=== PATIENT | male | born 1960 | race Caucasian/White ===

== ENCOUNTER 2020-03-05 12:58 | Emergency (ER) | payer OTHER, SELFPAY ==
[2020-03-05 13:07] VITALS: BP 167/90; PULSE 74; RESP 19; TEMP 36.6; O2SAT 97; BMI 27.8
--- NOTE | 2020-03-05 13:22 | HMH.EDUTC ---
[facility] – [place] Dis[place] Clinical Impression: Laceration Disposition: Home, Self-Care Condition on Discharge: Good Instructions: DI for Laceration Repair Steri-Strips Additional Instructions: Watch wound area for infection which includes but not limited to redness, drainage, swelling, warmth if seen follow up with Family doctor immediately *Leave wound open to air when you are at home and keep wound area clean and dry *Do not pick steri strips off, allow them to wear off this allows the wound time to heal from inside out Follow up with family doctor if no improvement or any worsening of symptoms *Follow up immediately if any fever chills or any signs of infection Return if needed Do not apply bandaids to the wound as this can make the wound sweat and increase your risk of infection Straight to ER if any life threatening symptoms Prescriptions: cephALEXin [Keflex 500mg Cap] 500 mg PO Q6H 7 Days #28 cap Transmission Status: Received by [facility] [employer] #[id number] Referrals: Provider,Referral, [Primary Care Provider] - As needed Time of Disposition: 13:42 Medical Decision Making - Jone Inquiry Pt receiving controlled substance: No Jone was queried for this patient: No Vital Signs: 03/05/20 13:07 03/05/20 14:02 Temperature 97.8 F 97.8 F Temperature Source Oral Oral Pulse Rate 74 Pulse Rate [Radial] 74 Respiratory Rate 19 19 Blood Pressure 167/90 H Blood Pressure [Right Arm] 167/90 H Blood Pressure Mean [Right Arm] 115 Blood Pressure Source Automatic Cuff Blood Pressure Source [Right Arm] Automatic Cuff Blood Pressure Position Sitting Blood Pressure Position [Right Arm] Sitting 02 Sat by Pulse Oximetry 97 Oxygen Delivery Method Room Air Room Air Orders (Tests/Meds): ED MEDICATIONS Discontinued Medications Generic Name Dose Route Start Last Admin Trade Name Freq PRN Reason Stop Dose Admin Tetanus/Diphtheria Toxoids 0.5 ml 03/05/20 13:24 03/05/20 13:31 Tenivac 0.5ml Syringe IM 03/05/20 13:25 0.5 ml .ONCE ONE Administration Medical Decision Narrative: wound laceration on top of hand/wrist area cleaned well and patient educated that when he has a wound this extensive needs to come in immediately for closure not just for cosmetic reasons but helps to lower risk of infection Patient verbalized understanding. Wound area cleaned well and steri strips placed to help with wound healing due to laceration and risk of infection, wound edges approximated well [facility] [place] HPI - General Stated complaint: AO 03/04/20 12:00 left hand injury Time Seen by Provider: 03/05/20 13:23 Mode of Arrival: Ambulatory Source of Information: Patient Limitations: No Limitations Description of Symptoms (Recalled from Triage Doc. by RN): cut left hand with utility knife yesterday HEENT Symptoms (Recalled from RN notes): No Resp Symptoms (Recalled from RN notes): No Skin Symptoms (Recalled from RN notes): Yes MS Symptoms (Recalled from RN notes): No Functional Status (Recalled from RN notes): wnl - History of Present Illness Provider Complaint: Patient state that he was using a utility knife yesterday when it slipped and cut his hand/wrist area on top of his hand State that he immediately cleaned it with alcohol and put some neosporin on it with a bandage to stop the bleeding States that his aggrivated him last night over a tetanus shot and this morning she was still telling him he needed to come so he came in States that EMT looked at it last night and told him he needed to come in but he wouldnt - Related Data Previous Rx's Medication Instructions Recorded cephALEXin [Keflex 500mg Cap] 500 mg PO Q6H 7 Days #28 cap 03/05/20 Allergies Allergy/AdvReac Type Severity Reaction Status Date / Time No Known Allergies Allergy Verified 03/05/20 13:10 - Worker's Comp Is this a Worker's Comp case?: No [facility] History - Hepatitis A Screen Drug use history?: No High risk sexual behaviors?: No H
[2020-03-05 14:02] VITALS: BP 167/90; PULSE 74; RESP 19; TEMP 36.6; O2SAT 97
== END 2020-03-05 14:03 | disposition home or self-care (01) ==
PROVIDERS: Emergency Provider Nurse Practitioner
DX: S61.412A Laceration without foreign body of left hand, initial encounter (principal); W26.0XXA Contact with knife, initial encounter; Y92.019 Unspecified place in single-family (private) house as the place of occurrence of the external cause; Z23 Encounter for immunization; F17.210 Nicotine dependence, cigarettes, uncomplicated
CPT/HCPCS: 90471; 90714; 99201

== ENCOUNTER → 2022-05-18 08:21 | Outpatient (CLI) | payer OTHER, SELFPAY ==
[2022-05-18 08:36] LABS: Microscopic, Urine URINE MICROSCOPIC (MICROSCOPIC)
--- NOTE | 2022-05-18 08:52 | XR_ITS ---
PROCEDURE INFORMATION: Exam: XR Chest Exam date and time: 05/18/2022 8:53 AM Age: 62 years old Clinical indication: Smoker's cough; Additional info: Cough, smoker TECHNIQUE: Imaging protocol: Radiologic exam of the chest. Views: 2 views. COMPARISON: No relevant prior studies available. FINDINGS: Lungs: No focal airspace disease. Pleural spaces: Unremarkable. No pleural effusion. No pneumothorax. Heart/Mediastinum: Cardiomediastinal silhouette is within normal limits. Bones/joints: Unremarkable. IMPRESSION: No acute cardiopulmonary abnormality.
[2022-05-18 09:14] LABS: Basophils # 0.1 K/mm3 (0-0.2); Basophils % 1.2 % (0.1-2.0); Eosinophils # 0.1 K/mm3 (0.0-0.4); Eosinophils % 2.2 % (0.1-12.0); Hematocrit 49.7 % (42.0-52.0); Hemoglobin 15.5 g/dL (14.1-18.0); Lymphocytes # 1.8 K/mm3 (0.7-4.5); Lymphocytes % 27.9 % (10-50); Mean Corpuscular HGB Conc 31.1 g/dL (31.8-35.4); Mean Corpuscular Volume 99.6 fl (80-94); Mean Platelet Volume 7.8 fl (7.4-10.4); Monocytes # 0.4 K/mm3 (0.1-1.0); Monocytes % 6.3 % (1.7-9.3); Neutrophils # 3.9 K/mm3 (1.8-7.8); Neutrophils % 62.4 % (37.0-80.0); Platelet Count 328 K/mm3 (142-424); Red Blood Count 4.99 M/mm3 (4.60-6.20); Red Cell Distribution Width 12.7 % (11.5-17.5); White Blood Count 6.3 K/mm3 (4.8-10.8)
[2022-05-18 09:41] LABS: Alanine Aminotransferase 24 U/L (12-78); Albumin Level 4.3 g/dl (3.5-5.0); Albumin/Globulin Ratio 1.7 (1.1-1.8); Alkaline Phosphatase 85 U/L (38-126); Anion Gap 11.3 mEq/L (5-15); Aspartate Amino Transferase 27 U/L (17-59); Bilirubin,Total 0.4 mg/dl (0.2-1.3); Blood Urea Nitrogen 11 mg/dl (9-20); Carbon Dioxide 23 mmol/L (22.0-30.0); Chloride 108 mmol/L (98-107); Chol/HDL Ratio 3.1 (1-3.5); Cholesterol 177 mg/dl (140-200); Estimated Glomerular Filt Rate 115 ml/min (>60); GFR (African American) 139 ML/MIN (>60); Globulin 2.6 g/dL (1.3-3.2); Glucose 119 mg/dl (74-100); HDL Cholesterol 58 mg/dl (40-60); Potassium 4.3 mmoL/L (3.5-5.1); Sodium 138 mmol/L (136-145); Total Protein,Serum 6.9 g/dl (6.3-8.2); Triglycerides 107 mg/dl (30-150); VLDL Cholesterol 21 mg/dL (0-40)
[2022-05-18 10:15] LABS: Appearance,Urine CLEAR (Clear); Bilirubin,Urine Negative (Negative); Blood, Urine Negative (Negative); Color,Urine YELLOW (Yellow); Glucose,Urine (UA) Negative (Negative); Ketones,Urine Negative (Negative); Leukocyte Esterase,Urine Negative (Negative); Nitrate,Urine Negative (Negative); PH,Urine 5.5 (5.0-8.5); Protein,Urine Negative (Negative); Specific Gravity, Urine >= 1.030 (1.005-1.030); Urobilinogen,Urine 0.2 EU/dl (0.2)
[2022-05-18 10:34] LABS: Squamous Epithelial Cell,Urine Occasional #/hpf (0-5)
[2022-05-18 11:03] LABS: Vitamin B12 455 pg/mL (239-931)
[2022-05-18 12:14] LABS: Thyroid Stimulating Hormone 2.47 uIU/mL (0.465-4.68)
[2022-05-18 16:46] LABS: Prostate Specific Ag Screen 0.3 ng/ml (0.0-4.0)
[2022-05-22 01:55] LABS: Direct LDL Cholesterol 96 mg/dL (100-129)
== END ==
PROVIDERS: Visit Provider Emergency Medicine
DX: R05.8 Other specified cough (principal); I10 Essential (primary) hypertension; M81.0 Age-related osteoporosis without current pathological fracture; Z72.0 Tobacco use; Z12.5 Encounter for screening for malignant neoplasm of prostate
CPT/HCPCS: 36415; 71046; 80053; 80061; 81001; 82607; 82746; 84443; 85025; G0103

== ENCOUNTER → 2022-10-07 10:48 | Outpatient (CLI) | payer OTHER, SELFPAY ==
[2022-10-07 16:20] LABS: Basophils # 0.1 K/mm3 (0-0.2); Eosinophils # 0.2 K/mm3 (0.0-0.4); Eosinophils % 2.1 % (0.1-12.0); Hematocrit 45.2 % (42.0-52.0); Hemoglobin 15.1 g/dL (14.1-18.0); Lymphocytes # 2.1 K/mm3 (0.7-4.5); Lymphocytes % 28.7 % (10-50); Mean Corpuscular HGB Conc 33.5 g/dL (31.8-35.4); Mean Corpuscular Hemoglobin 31.6 pg (27.0-31.2); Mean Corpuscular Volume 94.4 fl (80-94); Mean Platelet Volume 8.6 fl (7.4-10.4); Monocytes # 0.4 K/mm3 (0.1-1.0); Monocytes % 6.1 % (1.7-9.3); Neutrophils # 4.5 K/mm3 (1.8-7.8); Neutrophils % 62.1 % (37.0-80.0); Platelet Count 373 K/mm3 (142-424); Red Blood Count 4.78 M/mm3 (4.60-6.20); Red Cell Distribution Width 12.8 % (11.5-17.5); White Blood Count 7.2 K/mm3 (4.8-10.8)
[2022-10-07 16:21] LABS: Alanine Aminotransferase 27 U/L (12-78); Albumin Level 4.8 g/dl (3.5-5.0); Albumin/Globulin Ratio 1.8 (1.1-1.8); Alkaline Phosphatase 82 U/L (38-126); Anion Gap 13.4 mEq/L (5-15); Aspartate Amino Transferase 30 U/L (17-59); Bilirubin,Total 0.5 mg/dl (0.2-1.3); Blood Urea Nitrogen 14 mg/dl (9-20); Carbon Dioxide 26 mmol/L (22.0-30.0); Chloride 105 mmol/L (98-107); Chol/HDL Ratio 3.9 (1-3.5); Cholesterol 194 mg/dl (140-200); Estimated Glomerular Filt Rate 99 ml/min (>60); GFR (African American) 119 ML/MIN (>60); Globulin 2.6 g/dL (1.3-3.2); Glucose 107 mg/dl (74-100); HDL Cholesterol 50 mg/dl (40-60); Potassium 4.4 mmoL/L (3.5-5.1); Sodium 140 mmol/L (136-145); Total Protein,Serum 7.4 g/dl (6.3-8.2); Triglycerides 152 mg/dl (30-150); VLDL Cholesterol 30 mg/dL (0-40)
[2022-10-07 16:40] LABS: 25-OH Vitamin D, Total < 12.8 ng/mL (30-100)
[2022-10-07 16:52] LABS: Thyroid Stimulating Hormone 2.33 uIU/mL (0.465-4.68)
== END ==
PROVIDERS: PCP Physician Assistant; Visit Provider Physician Assistant
DX: Z00.00 Encounter for general adult medical examination without abnormal findings (principal); E55.9 Vitamin D deficiency, unspecified; Z79.899 Other long term (current) drug therapy
CPT/HCPCS: 80053; 80061; 82306; 84443; 85025

== ENCOUNTER → 2022-10-16 14:38 | Outpatient (CLI) | payer OTHER, SELFPAY ==
--- NOTE | 2022-10-16 14:38 | CT_ITS ---
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 Low-dose protocol was utilized. CTDI vol (mGy): 2.90 DLP (mGy-cm): 96.38 There is no axillary adenopathy. There is no hilar or mediastinal adenopathy. The heart is proper size. There is no pericardial or pleural effusion. Lung window images demonstrate small nodules in the periphery of the right lower lobe measuring 5 mm or less, favor granulomas given evidence of old granulomas disease. Limited images of the upper abdomen are unremarkable. IMPRESSION: Benign-appearing right lower lobe nodules. Lung RADS category 2. Recommend 12 month follow-up low-dose chest CT. Reviewed, Interpreted and Dictated by Dot Duarte MD Transcribed by Ifrah Bauer Authenticated and [facility]
== END ==
PROVIDERS: PCP Physician Assistant; Visit Provider Physician Assistant
DX: Z87.891 Personal history of nicotine dependence (principal); Z12.2 Encounter for screening for malignant neoplasm of respiratory organs
CPT/HCPCS: 71271

== ENCOUNTER → 2022-11-14 11:28 | Outpatient (CLI) | payer OTHER, SELFPAY ==
--- NOTE | 2022-11-14 | CA_ITS ---
APPROVED REPORT Exam: Pharmacologic Technologist: Yamileth Lopez, Ht: 6 ft 0 in Wt: 234 lbs BSA: 2.28 m2 HR: 57 bpm BP: 181/93 mmHg Rhythm: nsr,bradycardia,inferior st t abnormalities Medical History Medications: Lisinopril,,,,, Prilosec,,,,, D3,,,,, D2,,,,, Terbinafine,,,,, Stress Test Details Test: LEXISCAN HR Resting HR: 61 bpm Max Heart Rate (APMHR): 160.469207 bpm Max HR Achieved: 91 bpm Target HR (85% APMHR): 136.059589 bpm % of APMHR: 56.88 Recovery HR: 71 bpm BP Resting BP: 181.0/93.0 mmHg Max BP: 181.0/93.0 mmHg Recovery BP: 161.0/93.0 mmHg ECG Clinical Reason for Termination: Completed Protocol Exercise duration: 04:01 min Highest Stage Achieved: Exercise capacity: 1.0 METs Stress ECG Conclusion DURING INFUSION PATIENT HAD NO SYMPTOMS OR ARRHYTHMIAS/ECTOPY. <1.[address] SEGMENT CHANGES. NON-DIAGNOSTIC TEST Test Summary REST . . . . . . . Sitting REST 04:59 . . 61 . 181/ 93 . . Stage 1 . . . . . . . Myoview Injected Stage 1 01:00 . . 88 . . . . Stage 2 01:00 . . 83 . 162/ 88 . . Stage 3 01:00 . . 79 . 164/ 92 . . Stage 4 01:00 . . 77 . 171/ 97 . . Stage 4 01:01 . . 77 . 171/ 97 . Stop exercise at 04:01 RECOVERY 01:00 . . 74 . . . . RECOVERY 02:00 . . 71 . 161/ 93 . . RECOVERY 03:00 . . 69 . 161/ 93 . . RECOVERY 03:31 . . 69 . 160/ 95 . . Electronically signed by : Jeovanny Johnson MD 11/15/2022 13:05:58
--- NOTE | 2022-11-14 11:28 | NM_ITS ---
APPROVED REPORT Exam: Nuclear Stress Test Indication: Chest pain, SOB, HTN, Tobacco use, Family history Patient Location: Outpatient Stress Tech: Caroline Jessica [place] Tech:YOAV Alston RT(R)(N) Ht: 6 ft 0 in Wt: 230 lbs HR: 61 bpm BP: 181/93 mmHg BSA: 2.26 m2 TID: 1.04 History: Chest pain, SOB, HTN, Tobacco use, Family history Procedure: Patient received 0.4 mg of intravenous Lexiscan, resting heart rate 61 bpm, resting blood pressure 181/93 mmHg, with Lexiscan maximum heart rate achieved was 91 bpm which is Less than 85 % of the maximum predicted heart rate and blood pressure was 181/93 mmHg. With Lexiscan, patient denied any complaint of chest pain. Electrocardiogram Resting electrocardiogram shows sinus rhythm, with Lexiscan there is less than 1.[address] segment depression noted from the baseline EKG. The EKG portion of the Lexiscan is nondiagnostic. Cardiac Stress and Resting SPECT Images: Cardiac Stress and Resting SPECT images were obtained using technetium 99m Myoview 32.5 mCi stress and 10.29 mCi at rest. Gated SPECT analysis of segmental wall motion and calculation of the ejection fraction also done. Prone images were also obtained. Cardiac stress and rest SPECT images show uniform myocardial activity without segmental perfusion abnormality, computer derived ejection fraction is 47% with no regional wall motion abnormality, right ventricle is normal size and contractility. Conclusion: 1. The EKG portion of the Lexiscan is nondiagnostic. 2. No scintigraphic evidence of reversible ischemia seen, computer derived ejection fraction 47% with no regional wall motion abnormality, right ventricle is normal size and contractility. 3. Normal Lexiscan Myoview study. Electronically signed by : Jeovanny Johnson MD 11/15/2022 13:08:31
== END ==
LOC: RAD 11:28
PROVIDERS: PCP Physician Assistant; Visit Provider Nurse Practitioner Family
DX: R06.02 Shortness of breath (principal)
CPT/HCPCS: 78452; 93017; A9502; J2785

== ENCOUNTER → 2022-12-02 07:23 | Outpatient (CLI) | payer OTHER, SELFPAY ==
--- NOTE | 2022-12-02 07:24 | CA_ITS ---
FINAL REPORT TECHNIQUE: Grayscale, color Doppler and duplex Doppler ultrasound of the kidneys, aorta and renal arteries was performed. Multiple velocities were measured. CLINICAL HISTORY: HTN,SMOKER FINDINGS: Aorta velocity: 85 cm/sec Right kidney: 11.8 cm. No evidence of hydronephrosis or mass. Right intrarenal RI: 0.71 Right renal artery velocity: 184 cm/sec. Right RAR (Renal artery-Aortic Ratio): 2.15 Left Kidney: 11.5 cm. No evidence of hydronephrosis or mass. Left intrarenal RI: 0.68 Left renal artery velocity: 186 cm/sec. Left RAR (Renal Artery-Aortic Ratio): 2.19 IMPRESSION: Less than 60% renal artery stenosis. Recommend CTA or catheter angiogram for further evaluation. Reviewed, Interpreted and Dictated by Janak Kaur III, MD Transcribed by Ifrah Bauer Authenticated and [facility]
--- NOTE | 2022-12-02 07:59 | US_ITS ---
FINAL REPORT TECHNIQUE: Ultrasound images of the kidneys and bladder were obtained. CLINICAL HISTORY: I10 - Essential (primary) hypertension FINDINGS: The right kidney measures 13 cm in length. It is normal in echogenicity. There is no hydronephrosis. The left kidney measures 11.3 cm in length. It is normal in echogenicity. There is no hydronephrosis. IMPRESSION: No hydronephrosis. Reviewed, Interpreted and Dictated by Janak Kaur III, MD Transcribed by Jane Wilburn Authenticated and [facility]
== END ==
LOC: RT 07:24
PROVIDERS: PCP Physician Assistant; Visit Provider Nurse Practitioner
DX: R06.02 Shortness of breath (principal); R07.9 Chest pain, unspecified; I10 Essential (primary) hypertension; F17.200 Nicotine dependence, unspecified, uncomplicated; Z78.9 Other specified health status; Z82.49 Family history of ischemic heart disease and other diseases of the circulatory system
CPT/HCPCS: 76770; 93976

== ENCOUNTER 2023-03-13 07:34 | Emergency (ER) | payer OTHER, SELFPAY ==
[2023-03-13 07:34] VITALS: BP 148/86; PULSE 84; RESP 18; TEMP 36.4; O2SAT 98; BMI 30.2
--- NOTE | 2023-03-13 07:53 | PC.NURSE ---
MATTHEW CUEVAS at
--- NOTE | 2023-03-13 08:00 | XR_ITS ---
FINAL REPORT TECHNIQUE: Chest PA & Lateral CLINICAL HISTORY: Pleuritic chest pain COMPARISON: 04/28/2022 FINDINGS: 2 views of the chest were performed. The heart size is normal. The mediastinum is within normal limits. There is no acute cardiopulmonary process. There are no pleural effusions. There is no pneumothorax. The bony thorax appears intact. IMPRESSION: No acute cardiopulmonary process. Reviewed, Interpreted and Dictated by Mahesh Malloy MD Transcribed by Breonna Guzman Authenticated and . [facility]
--- NOTE | 2023-03-13 08:01 | HMH.EDGENADL ---
Discharge Plan Disposition Patient Disposition: Home, Self-Care Prescriptions Prescriptions: New naproxen 375 mg tablet 375 mg PO BID Qty: 30 0RF No Action aspirin [Adult Low Dose Aspirin] 81 mg tablet,delayed release (DR/EC) 81 mg PO DAILY Qty: 90 1RF carvedilol [Coreg] 6.25 mg tablet 6.25 mg PO BID Qty: 180 1RF Rx Instructions: must administer with a meal/food omeprazole magnesium [Prilosec OTC] 20 mg tablet,delayed release (DR/EC) 20 mg PO DAILY psyllium husk [Fiber (psyllium husk)] 0.4 gram capsule 0.8 g PO DAILY cholecalciferol (vitamin D3) 50 mcg (2,000 unit) capsule 50 mcg PO DAILY Qty: 90 3RF ergocalciferol (vitamin D2) 1,250 mcg (50,000 unit) capsule See Rx Instructions .ROUTE .COMPLEX Qty: 14 0RF Dose Instruction: TAKE 1 CAPSULE BY MOUTH ONCE WEEKLY ON SAME DAY EACH WEEK Rx Instructions: TAKE 1 CAPSULE BY MOUTH ONCE WEEKLY ON SAME DAY EACH WEEK terbinafine HCl 250 mg tablet See Rx Instructions .ROUTE .COMPLEX Qty: 30 0RF Dose Instruction: TAKE 1 TABLET BY MOUTH DAILY Rx Instructions: TAKE 1 TABLET BY MOUTH DAILY lisinopril 40 mg tablet 40 mg PO DAILY Qty: 90 1RF Referrals Follow up/Referrals: Rebekah Rendon PA [Primary Care Provider] - See instructions Clinical Impressions Clinical Impression: Acute chest wall pain Stand Alone Forms Stand Alone Forms: Work/School Release Discharge ED Provider: Brien Jimenes General Adult HPI General Chief complaint: PAIN Stated complaint: RT rib pain Time Seen by Provider: 03/13/23 07:57 Mode of Arrival: Ambulatory Source of Information: Patient Limitations: No Limitations Description of Symptoms (Recalled from ER Triage Doc. by RN): Presents to ED with complaints of right sided rib pain that started the night before last, however progressed while working yesterday. Reports pain upon inspiration. History of Present Illness HPI narrative: 62-year-old white male presents with right anterior lower chest wall pain with deep inspirations. The patient has had no known trauma has had no fever chills or cough out of the ordinary. He is a smoker so he has a baseline cough. 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 Patient reports that he went to work yesterday but the pain increased as the day progressed. He has not sought medical attention prior to this visit. Related Data Home Medications Medication Instructions Recorded Confirmed omeprazole magnesium 20 mg 20 mg PO DAILY 10/07/22 03/05/23 tablet,delayed release (Prilosec OTC) psyllium husk 0.4 gram capsule 0.8 g PO DAILY 10/07/22 03/05/23 (Fiber (psyllium husk)) Previous Rx's Medication Instructions Recorded cholecalciferol (vitamin D3) 50 50 mcg PO DAILY #90 caps 10/09/22 mcg (2,000 unit) capsule aspirin 81 mg tablet,delayed 81 mg PO DAILY #90 tabs 10/23/22 release (Adult Low Dose Aspirin) carvedilol 6.25 mg tablet (Coreg) 6.25 mg PO BID #180 tabs 10/23/22 ergocalciferol (vitamin D2) 1,250 See Rx Instructions .Route 12/05/22 mcg (50,000 unit) capsule .COMPLEX #14 caps terbinafine HCl 250 mg tablet See Rx Instructions .Route 02/14/23 .COMPLEX #30 tabs lisinopril 40 mg tablet 40 mg PO DAILY #90 tabs 02/18/23 naproxen 375 mg tablet 375 mg PO BID #30 tabs 03/13/23 Allergies Allergy/AdvReac Type Severity Reaction Status Date / Time No Known Allergies Allergy Verified 03/05/23 08:32 [facility] Disclaimer: The information contained in this section may have been updated after the patient was seen, as this information can be updated by other users. Medical History Alcohol use Chest pain Family history of coronary artery disease Hypertension SOB (shortness of breath) on exertion Tobacco dependence syndrome Family History (Reviewed 0
--- NOTE | 2023-03-13 08:31 | ECG_ITS ---
APPROVED REPORT Exam: Resting ECG HR:67 bpm ECG Measurements Heart Rate 67 AXES KS 159 P 44 QRSd 110 QRS -14 QT 362 T 6 QTc 377 Conclusion SINUS RHYTHM NORMAL ECG UNCONFIRMED REPORT Electronically signed by : Terrence Walker MD 03/13/2023 20:07:41
--- NOTE | 2023-03-13 08:33 | PC.NURSE ---
Pt to XR
--- NOTE | 2023-03-13 08:40 | PC.NURSE ---
Pt back from XR
[2023-03-13 08:42] LABS: Basophils % 0.4 % (0.1-2.0); Eosinophils # 0.2 K/mm3 (0.0-0.4); Eosinophils % 2.8 % (0.1-12.0); Hematocrit 43.9 % (42.0-52.0); Hemoglobin 14.7 g/dL (14.1-18.0); Lymphocytes % 11.8 % (10-50); Mean Corpuscular HGB Conc 33.6 g/dL (31.8-35.4); Mean Corpuscular Hemoglobin 31.5 pg (27.0-31.2); Mean Corpuscular Volume 93.8 fl (80-94); Mean Platelet Volume 8.1 fl (7.4-10.4); Monocytes # 0.7 K/mm3 (0.1-1.0); Monocytes % 7.9 % (1.7-9.3); Neutrophils # 6.6 K/mm3 (1.8-7.8); Neutrophils % 77.2 % (37.0-80.0); Platelet Count 285 K/mm3 (142-424); Red Blood Count 4.68 M/mm3 (4.60-6.20); Red Cell Distribution Width 12.8 % (11.5-17.5); White Blood Count 8.6 K/mm3 (4.8-10.8)
[2023-03-13 08:43] LABS: Chloride 101 mmol/L (98-107); Sodium 136 mmol/L (136-145)
[2023-03-13 08:46] LABS: Alanine Aminotransferase 22 U/L (12-78); Albumin Level 4.4 g/dl (3.5-5.0); Albumin/Globulin Ratio 1.5 (1.1-1.8); Alkaline Phosphatase 76 U/L (38-126); Aspartate Amino Transferase 29 U/L (17-59); Bilirubin,Total 0.6 mg/dl (0.2-1.3); Blood Urea Nitrogen 12 mg/dl (9-20); Carbon Dioxide 25 mmol/L (22.0-30.0); Creatinine Clearance Estimated 140 mL/min (50-200); Estimated Glomerular Filt Rate 99 ml/min (>60); GFR (African American) 119 ML/MIN (>60); Total Protein,Serum 7.4 g/dl (6.3-8.2)
[2023-03-13 08:47] LABS: Calcium 8.9 mg/dl (8.4-10.2); Glucose 127 mg/dl (74-100)
[2023-03-13 09:03] LABS: Troponin I < 0.01 ng/ml (0.00-0.034)
[2023-03-13 09:09] LABS: D-Dimer 0.94 ug/mL (0.0-0.5)
--- NOTE | 2023-03-13 09:27 | CT_ITS ---
FINAL REPORT TECHNIQUE: The patient was injected with IV contrast. Axial images were obtained through the chest in a PE protocol. 3-D reconstruction images were also performed. Individualized dose reduction techniques using automated exposure control or adjustment of the MA and/or KV according to patient's size were employed. CLINICAL HISTORY: Pleuritic chest pain positive D-dimer FINDINGS: Mediastinal vasculature is adequately opacified. No pulmonary artery filling defects are identified to suggest PE. There is no aortic dissection. There is no axillary adenopathy. There is no hilar or mediastinal adenopathy. The heart size is normal. There is no pericardial or pleural effusion. Limited images of the upper abdomen are unremarkable. No suspicious infiltrate or nodule is identified, specifically the small nodules seen on the screening low-dose chest CT of October 16 are not visualized on today's exam. There is a calcified granuloma present in the posterior left upper lobe. Incidental note is made of small right collecting system nonobstructing 4 mm kidney stones. IMPRESSION: No pulmonary embolus or dissection. Tiny nodules seen on a screening chest CT of October 16 are not seen on today's exam. A few tiny small right renal collecting system nonobstructing stones are present. Reviewed, Interpreted and Dictated by Mahesh Malloy MD Transcribed by Breonna Guzman Authenticated and [facility]
--- NOTE | 2023-03-13 09:29 | PC.NURSE ---
Rounded on patient; call gallagher within reach of patient
[2023-03-13 09:43] VITALS: BP 140/76; PULSE 56; RESP 16; O2SAT 97
--- NOTE | 2023-03-13 09:44 | PC.NURSE ---
pt to CT
[2023-03-13 10:00] VITALS: BP 146/68; PULSE 55; RESP 18; O2SAT 96
[2023-03-13 10:30] VITALS: BP 127/72; PULSE 53; RESP 18; O2SAT 95
--- NOTE | 2023-03-13 10:44 | PC.NURSE ---
contacted rad to check on status of CT chest result- states will send down preliminary result.
--- NOTE | 2023-03-13 10:46 | PC.NURSE ---
rounded on pt, pt resting in bed, updated pt that CT results are being send down from radiology. Pt states no needs at this time.
[2023-03-13 11:01] VITALS: BP 136/71; PULSE 56; RESP 18; O2SAT 96
[2023-03-13 11:18] VITALS: BP 136/71; PULSE 56; RESP 16; TEMP 36.4; O2SAT 96
== END 2023-03-13 11:18 | disposition home or self-care (01) ==
PROVIDERS: Emergency Provider Emergency Medicine; PCP Physician Assistant
DX: R07.89 Other chest pain (principal); R79.1 Abnormal coagulation profile; F17.210 Nicotine dependence, cigarettes, uncomplicated; I10 Essential (primary) hypertension
CPT/HCPCS: 71046; 71275; 80053; 84484; 85025; 85378; 93005; 96372; 96374; 99284; 99285; Q9967

== ENCOUNTER → 2023-09-04 10:14 | Outpatient (CLI) | payer OTHER, SELFPAY ==
--- NOTE | 2023-09-04 10:17 | CA_ITS ---
APPROVED REPORT EXAM: Comprehensive 2D, Doppler, and color-flow Echocardiogram Manager Call Center: Vivian Perez CRT Ht: 6 ft 0 in Wt: 218lbs BSA: 2.21 BP: 140/80 mmHg Indications: Chest Pain, Shortness of Breath, Fatigue, Hyperlipidemia, Hypertension/HDD, smoker 2D Dimensions Left Atrium 4.32 cm M: 3.0 - 4.0 LA Volume 51.80 mL LVOT 1.97 cm (M/F) 1.5-2.5 LA Volume Index 23.44 mL/m2 (M/F) 16-34 EF AP2 50.9 % GL Strain -18.5 % M-Mode Dimensions RVDd 2.61 cm (0.9-2.6) LVDd 6.33 cm (3.5-5.7) Ao Diam 3.90 cm (2.0-3.7) LVDs 4.38 cm (3.5-5.7) IVSd 1.13 cm (0.6-1.1) PWd 0.91 cm (0.6-1.1) EF (Teich) 57.30% FS 30.80% EDV (Teich) 203.40 mL TAPSE 2.99 (<1.7) ESV (Teich) 86.80 mL LV Diastology E Decel Time 197 (160-240 msec) E/A Ratio 1.3 MED E' 7.0 (>= 7 cm/sec) MED A' 9.90 cm/s E'/MED E' Ratio 13.20 (<= 14) LAT E' 9.9 (>= 10 cm/sec) LAT A' 12.70 cm/s E/LAT E' Ratio 9.33 (<= 14) Aortic Valve AoV Peak Richy. 132.0 (50-130 cm/s) AI PHT 443.00 ms AO Peak GR. 6.90 mmHg Mitral Valve MV E Max Richy. 92.0 (40-130 cm/s) MV A Velocity 69.0 (40-130 cm/s) E/A Ratio 1.34 MV Decel. Time 197 (160-240 ms) Tricuspid Valve TR P. Velocity 295.00 cm/s RAP Estimate 10.00 mmHg RVSP 44.80 mmHg Left Ventricle The left ventricle is normal size. The left ventricular systolic function is normal. The left ventricular ejection fraction is within the normal range. There is normal left ventricular wall thickness. There is normal LV segmental wall motion. The left ventricular diastolic function is normal. LVEF is 55%. Right Ventricle The right ventricle is mildly dilated. The right ventricular systolic function is normal. Atria The left atrium size is normal. The right atrium size is normal. There is no Doppler evidence of interatrial shunt. Aortic Valve The aortic valve is mildly thickened. There is no aortic valvular stenosis. Mild aortic regurgitation. Mitral Valve The mitral valve leaflets are mildly thickened. No evidence of mitral valve stenosis. Trace mitral regurgitation. Tricuspid Valve The tricuspid valve leaflets are thin and pliable. Mild tricuspid regurgitation. RVSP is 30-35 mmHg. Pulmonic Valve The pulmonary valve is normal in structure. Mild pulmonic regurgitation. Great Vessels The aortic root is normal in size. The ascending aorta is normal in size. IVC is dilated, but collapses > 50% with respirophasic variation. Pericardium There is no pericardial effusion. Other Information Study Quality: Fair Conclusion Normal biventricular systolic function. Mild RV dilatioin. Mild AI. Mild TR. Mild MA. RVSP 30-35 mmHg. Electronically signed by : Lucie Logan MD 09/12/2023 19:05:06
== END ==
LOC: RT 10:17
PROVIDERS: PCP Physician Assistant; Visit Provider Physician Assistant
DX: R07.9 Chest pain, unspecified (principal); R53.83 Other fatigue; Z82.49 Family history of ischemic heart disease and other diseases of the circulatory system; F17.200 Nicotine dependence, unspecified, uncomplicated
CPT/HCPCS: 93306

== ENCOUNTER 2023-10-27 08:44 | Outpatient (CLI) | payer OTHER, SELFPAY ==
[2023-10-27] VITALS (7 sets, daily range): BP systolic 104–161; BP diastolic 47–104; PULSE 59–67; RESP 16–18; TEMP 36.4; O2SAT 97–98
--- NOTE | 2023-10-27 08:44 | CT_ITS ---
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 A noncontrast coronary calcium scan was performed. A CT attenuation threshold of 130 Hounsfield units (HU) was used for the detection of calcium in contiguous voxels of 1 sq mm in area to be counted as individual lesions. Bolus tracking in the ascending aorta with a threshold of 180 HU was performed. Immediately afterwards, ECG synchronized cardiac CT was then performed from the cardiac base to apex using retrospective gating with ECG tube current modulation. A total of 85 mL of Isovue 370 mg/mL contrast medium was administered at 5 mL/sec followed by a saline flush using a biphasic injection protocol. A tube voltage of 120 KVp was used. The patient received the following medications prior to the cardiac CT. 50 mg of oral metoprolol 0.8 mg of sublingual nitroglycerin The average heart rate at the time of acquisition was 56 bpm and regular. Image Reconstruction Transaxial images were reconstructed at 0.67 mm slide thickness. Data was reviewed interactively on an advanced workstation capable of 2 and 3-dimensional displays in all conventional reconstruction formats, including multiplanar reformations, maximum intensity projections, curved multiplanar reformations, and volume rendered reconstructions. When applicable, selected routine images describing the relevant coronary anatomy and pathology were saved and sent to PACS. Complications None Technical Quality Overall image quality was good. Coronary artery opacification was adequate. Total DLP (Dose-Length Product) is 1479.9 mGy-cm. The reported value represents the total of one or more individual components during the CT acquisition of this date and at this time, and as such, the same value may appear in more than one CT report depending on the interpreting/reporting physicians. COMPARISON None FINDINGS CT Coronary Calcium Scoring LMA (Left Main Artery) = 0 LAD (Left Anterior Descending) = 6 LCX (Left Coronary Circumflex) = 0 RCA (Right Coronary Artery) = 1 Total Calcium Score = 7 using the AJ-130 method. The observed calcium score of 7 is at 35th percentile for subjects of the same age, sex, and race/ethnicity. The interpretation of the calcium heart score is based on the following continuum*: 0 = no calcified plaque detected (risk of coronary artery disease is very low ??? less than 5%) 1-10 = calcium detected in extremely minimal levels (risk of coronary diseases is still low ??? less than 10%) 11-100 = mild levels of plaque detected with certainty (mild or minimal narrowing of heart arteries is likely) 101-400 = definite,at least moderate levels of plaque detected (relatively high risk of a heart attack within 3-5 years) >401-999 = extensive levels of plaque detected (high risk of heart attack, high levels of vascular disease are present, high likelihood of at least one significant coronary narrowing) *The calcium heart score quantifies the burden of coronary calcification/plaque in the coronary arteries. The calcium heart score is not able to evaluate the presence or burden of non-calcified (i.e. soft) plaque. There is no identifiable calcification in the aortic valve, mitral annulus or mitral valve, pericardium, or myocardium. Coronary CT Angiography The coronary arterial system is right dominant. Quantitative Stenosis Grading: Left Main (LM): The left main originates normally from the left sinus of Valsalva. The LM bifurcates into the left anterior descending artery and left circumflex artery. The LM is patent with no evidence of atherosclerosis. Left Anterior Descending (LAD) and Diagonal Branches: The LAD gives off 3 diagonal branch(es). There are 2 focal calcifications in the proximal LAD but without any luminal stenosis. The remainder of the LAD segments and its branches are patent with no evidence of atherosclerosis. There is no evidence of LAD bridge. Left Circumflex (LCX) and Obtuse Marginals (OM): The LCX gives off 1 Obtuse Marginal (OM) branch. The LCX and its branches are patent with no evidence of atherosclerosis. Right Coronary Artery (RCA): The RCA originates normally from the right sinus of Valsalva. The RCA gives off a posterior descending artery (PDA) and posterolateral (PL) branches. There is 1 focus of calcification in the proximal RCA but without any luminal stenosis. The remainder of the RCA segments and branches are patent with no evidence of atherosclerosis. Non-Coronary Cardiac Findings: Analysis of the left ventricular (LV) structure and function was performed after 3-D reconstruction of the LV from axial images, with user-corrected automatic contouring for assessment of LV volumes and user-defined reconstruction from oblique planes for measurement of 3-D cardiac structure and function. LVEDV: 250 mL LVESV: 110 mL SV: 140 mL LVEF: 56% -There is normal left ventricular systolic function. -There is no left atrial appendage filling defect. Two right pulmonary veins and two left pulmonary veins drain normally into the left atrium. -No pericardial thickening or calcification. -Central and branch pulmonary arteries in the [id number] are unremarkable. -Thoracic aorta within the visualized thoracic aortic-branches in the [id number] is unremarkable. Extracardiac Structures No significant extra-cardiac findings. Note, however, that this study is focused on the cardiac findings. IMPRESSION -Presence of minimal coronary calcification with an Agatston score = 7 using the AJ-130 method. -The observed calcium score of 7 is at 35th percentile for subjects of the same age, sex, and race/ethnicity. -No evidence of significant flow-limiting atherosclerosis of the coronary arteries. -CAD-RADS 1. Management recommendations per ACC/AHA guidelines*, as clinically appropriate. *Recommendations: CAD RADS 0: Reassurance. Consider non-atherosclerotic causes of chest pain. CAD RADS 1: Consider non-atherosclerotic causes of chest pain. Consider preventive therapy and risk factor modification. CAD RADS 2: Consider non-atherosclerotic causes of chest pain. Consider preventive therapy and risk factor modification, particularly for patients with nonobstructive plaque in multiple segments. CAD RADS 3: Consider further functional testing. Consider symptom-guided anti-ischemic and preventive pharmacotherapy as well as risk factor modification per published guideline statements. CAD RADS 4A: Consider further functional testing or invasive coronary angiography with revascularization per published guideline statements. Consider symptom-guided anti-ischemic and preventive pharmacotherapy as well as risk factor modification per published guideline statements. CAD RADS 4B: Invasive coronary angiography recommended with revascularization per published guideline statements. Consider symptom-guided anti-ischemic and preventive pharmacotherapy as well as risk factor modification per published guideline statements. CAD RADS 5: Consider invasive angiography and/or viability assessment with revascularization per published guideline statements. Consider symptom-guided anti-ischemic and preventive pharmacotherapy as well as risk factor modification per published guideline statements. CRITICAL RESULT None COMMUNICATION Per this written report The coronary and cardiac findings of this CCTA were reviewed, reported, and signed by Jerson Logan MD (Billet Sawyer) Conclusion Electronically signed by : Lucie Logan MD 10/30/2023 16:25:42
[2023-10-27] MEDS: METOPROLOL TARTRATE 25MG TABLET 50 MG (09:16)
[2023-10-27 09:34] LABS: Blood Urea Nitrogen 11 mg/dl (9-20); Calcium 8.9 mg/dl (8.4-10.2); Carbon Dioxide 26 mmol/L (22.0-30.0); Creatinine Clearance Estimated 109 mL/min (50-200); Estimated Glomerular Filt Rate 115 ml/min (>60); GFR (African American) 139 ML/MIN (>60); Glucose 114 mg/dl (74-100)
[2023-10-27 09:51] LABS: Anion Gap 9.3 mEq/L (5-15); Chloride 105 mmol/L (98-107); Potassium 4.3 mmoL/L (3.5-5.1); Sodium 136 mmol/L (136-145)
[2023-10-27] MEDS: NITROGLYCERIN 0.4MG SL TABLET 0.800000000000000044 MG SL (10:12)
[2023-10-27] MEDS: METOPROLOL TARTRATE 5MG/5ML VIAL *IVABRADINE+METOPROLOL REGIMINE 5 MG IV (10:24)
[2023-10-27] MEDS: SODIUM CHLORIDE 0.9% 10ML SYR (RAD ONLY) 10 ML IV (10:36)
[2023-10-27] MEDS: IOPAMIDOL-370 (76%);100ML BOTTLE 85 ML IV (10:36)
[2023-10-27] MEDS: 0.9 % SODIUM CHLORIDE 50 ML VIAL IV (10:36)
== END 2023-10-27 11:10 | disposition home or self-care (01) ==
PROVIDERS: Internal Medicine; PCP Physician Assistant; Visit Provider Physician Assistant
DX: R07.9 Chest pain, unspecified (principal); R53.83 Other fatigue; F17.200 Nicotine dependence, unspecified, uncomplicated; Z82.49 Family history of ischemic heart disease and other diseases of the circulatory system
CPT/HCPCS: 75571; 75574; 80048; Q9967

== ENCOUNTER 2024-02-19 07:16 | Emergency (ER) | payer OTHER, SELFPAY ==
[2024-02-19] VITALS (7 sets, daily range): BP systolic 140–168; BP diastolic 79–93; PULSE 58–77; RESP 18–20; TEMP 36.6–36.7; O2SAT 96–98; BMI 27.1
--- NOTE | 2024-02-19 07:26 | CA_ITS ---
FINAL REPORT TECHNIQUE: Ultrasound images of the deep venous system were obtained from the left groin to the calf veins. CLINICAL HISTORY: LLE pain/swelling x 3-4 weeks, last 4 days pain is worse and unbearable. Smoker, HTN, SOB, fatigue FINDINGS: The deep venous system is normally compressible. Normal flow is identified. IMPRESSION: No evidence of left lower extremity DVT. Reviewed, Interpreted and Dictated by Mahesh Malloy MD Transcribed by Dianelys Obregon Authenticated and [facility]
--- NOTE | 2024-02-19 07:26 | HMH.EDGENADL ---
Discharge Plan Disposition Patient Disposition: Xfer Short-Term Hosp Condition: Good Prescriptions Prescriptions: No Action psyllium husk [Fiber (psyllium husk)] 0.4 gram capsule 0.8 g PO DAILY carvedilol [Coreg] 6.25 mg tablet 6.25 mg PO BID Qty: 180 3RF Rx Instructions: must administer with a meal/food lisinopril 40 mg tablet 40 mg PO DAILY Qty: 90 3RF albuterol sulfate 90 mcg/actuation HFA aerosol inhaler 1 inh inhalation QID PRN (Reason: wheezing) Qty: 8.5 2RF aspirin 81 mg tablet,delayed release (DR/EC) 81 mg PO DAILY Qty: 90 3RF rosuvastatin [Crestor] 5 mg tablet 5 mg PO DAILY Qty: 90 1RF ergocalciferol (vitamin D2) 1,250 mcg (50,000 unit) capsule See Rx Instructions .ROUTE .COMPLEX Qty: 14 0RF Dose Instruction: TAKE 1 CAPSULE BY MOUTH ONCE WEEKLY ON SAME DAY EACH WEEK Rx Instructions: TAKE 1 CAPSULE BY MOUTH ONCE WEEKLY ON SAME DAY EACH WEEK cholecalciferol (vitamin D3) [D3-2000] 50 mcg (2,000 unit) capsule See Rx Instructions .ROUTE .COMPLEX Qty: 90 0RF Dose Instruction: TAKE 1 CAPSULE BY MOUTH DAILY Rx Instructions: TAKE 1 CAPSULE BY MOUTH DAILY omeprazole 40 mg capsule,delayed release(DR/EC) See Rx Instructions .ROUTE .COMPLEX Qty: 90 3RF Dose Instruction: TAKE 1 CAPSULE BY MOUTH DAILY Rx Instructions: TAKE 1 CAPSULE BY MOUTH DAILY naproxen 375 mg tablet 375 mg PO BID Qty: 30 0RF Referrals Follow up/Referrals: Rebekah Rendon PA [Primary Care Provider] - See instructions Activity Restrictions/Add. Instructions Additional Instructions/Restrictions: You were evaluated in the emergency department and accepted to [facility]. Please proceed directly there to registration. Do not eat or drink anything on the way. Clinical Impressions Clinical Impression: Effusion of left knee, CRP elevated, Elevated CK, Acute pain of left lower extremity Discharge ED Provider: Jodi Gates General Adult HPI General Chief complaint: Extremity Problem,Nontraumatic Stated complaint: Pain/swelling in L leg from knee and ankle Time Seen by Provider: 02/19/24 07:21 History of Present Illness HPI narrative: This patient is a 63-year-old male with a history of hypertension and tobacco use presenting to the emergency department for evaluation with concern for atraumatic left lower extremity pain and swelling that started yesterday. No known falls or injuries. No recent travel, immobilizations, or surgeries. No history of blood clots or clotting disorders. He is not currently on a blood thinner. No fevers or infectious symptoms. His pain is mostly on the lateral aspect of his left lower leg/calf extending behind his knee, and his knee is swollen. No numbness, tingling, or other concerns. No recent wounds or skin changes. No history of gouty or septic arthritis. Related Data Home Medications Medication Instructions Recorded Confirmed psyllium husk 0.4 gram capsule 0.8 g PO DAILY 10/07/22 10/27/23 (Fiber (psyllium husk)) Previous Rx's Medication Instructions Recorded naproxen 375 mg tablet 375 mg PO BID #30 tabs 03/13/23 carvedilol 6.25 mg tablet (Coreg) 6.25 mg PO BID #180 tabs 03/27/23 lisinopril 40 mg tablet 40 mg PO DAILY #90 tabs 06/16/23 albuterol sulfate 90 mcg/actuation 1 inh inhalation QID PRN wheezing 09/04/23 aerosol inhaler #8.5 grams aspirin 81 mg tablet,delayed 81 mg PO DAILY #90 tabs 12/02/23 release rosuvastatin 5 mg tablet (Crestor) 5 mg PO DAILY #90 tabs 12/02/23 cholecalciferol (vitamin D3) 50 See Rx Instructions .Route 12/23/23 mcg (2,000 unit) capsule (D3-2000) .COMPLEX #90 caps ergocalciferol (vitamin D2) 1,250 See Rx Instructions .Route 12/23/23 mcg (50,000 unit) capsule .COMPLEX #14 caps omeprazole 40 mg capsule,delayed See Rx Instructions .Route 12/24/23 release .COMPLEX #90 caps Allergies Allergy/AdvReac Type Severity Reaction Status Date / Time No Known Allergies Allergy Verified 10/27/23 09:04 [facility] Disclaimer: The information contained in this section may have been updated after the patient was seen, as this information can be updated by other users. Medical History No significant past medical history Wheezing Fatigue SOB (shortness of breath) on exertion Alcohol use Family history of coronary artery disease Chest pain Tobacco dependence syndrome Hypertension Surgical History No significant past surgical history Family History Father Coronary artery disease Brother Coronary artery disease Brother Coronary artery disease Brother Coronary artery disease Social History Smoking Status: Never smoker second hand exposure: Yes alcohol intake: current alcohol intake frequency: 3 or more drinks per day substance use type: marijuana current occupational status: employed Travel in the last 8 weeks: None ROS Obtained: Yes All systems reviewed & no additional complaints except as documented Physical Exam General General appearance: alert and in no apparent distress Head Head exam: atraumatic and normocephalic Eye Eye exam: Present normal appearance, PERRL and EOMI ENT ENT exam: Present normal exam, normal oropharynx, mucous membranes moist and normal external ear exam Neck Neck exam: Present normal inspection, full ROM and trachea midline; Absent tenderness Chest Chest inspection: Present normal inspection and symmetric chest wall rise; Absent tenderness Respiratory Respiratory exam: Present normal lung sounds bilaterally; Absent respiratory distress, wheezes, stridor or accessory muscle use Cardiovascular Cardiovascular exam: Present regular rate and normal rhythm Abdominal Exam Abdominal exam: Present soft; Absent distention, tenderness or guarding Extremities Exam Extremities exam: Present normal capillary refill, edema and calf tenderness; Absent full ROM or tenderness Expanded Lower Extremity Exam Left: Hip/Pelvis exam: Present normal inspection Knee exam: Present tenderness (Lateral L calf/behind L knee), swelling (LLE pitting edema. All compartments soft. Neurovascularly intact distally) and effusion; Absent full ROM (limited active and passive ROM), abrasion, laceration, ecchymosis, crepitus or erythema Lower leg exam: Present tenderness (lateral L lower leg), swelling (pitting edema LLE) and palpable cord (lateral L lower leg); Absent abrasion, laceration, ecchymosis, crepitus or erythema Ankle exam: Present full ROM and swelling (mild); Absent tenderness Foot/toe exam: Present normal inspection and full ROM; Absent tenderness, swelling, ecchymosis or deformity Neurovascular/Tendon exam: Present normal capillary refill and normal fine/light touch; Absent pulse deficit, motor deficit, sensory deficit, tendon deficit, extremity cold to touch or pallor Comment: tight medial compartment of L lower leg but neurovascularly intact Back Exam Back exam: Present normal inspection and full ROM; Absent tenderness Neurological Exam Neurological exam: Present alert, oriented X3, CN II-XII intact and normal gait; Absent motor sensory deficit Psychiatric Psychiatric exam: Present normal affect and normal mood Skin Skin exam: Present warm and dry Medical Decision Making Medical Records Medical records reviewed: Yes I reviewed the patient's medical records. Jone Inquiry Pt receiving controlled substance: No Vital Signs: 02/19/24 07:18 02/19/24 07:23 02/19/24 07:30 Temperature 98 F Temperature Source Oral Pulse Rate 77 68 Pulse Rate [Right] 76 Respiratory Rate 18 18 20 Blood Pressure 168/79 H 163/87 H Blood Pressure [Right Arm] 168/79 H Blood Pressure Mean 108 112 Blood Pressure Mean [Right Arm] 108 02 Sat by Pulse Oximetry 97 98 96 02/19/24 08:00 02/19/24 08:30 02/19/24 09:00 Temperature Temperature Source Pulse Rate 70 64 63 Pulse Rate [Right] Respiratory Rate 18 18 20 Blood Pressure 140/81 153/86 H 146/83 H Blood Pressure [Right Arm] Blood Pressure Mean 109 108 109 Blood Pressure Mean [Right Arm] 02 Sat by Pulse Oximetry 98 97 97 Lab Data Lab results reviewed: Yes I reviewed the patient's lab results. Lab Results 02/19/24 07:30: WBC 10.0, RBC 4.47 L, Hgb 14.1, Hct 41.9 L, MCV 93.8, MCH 31.5 H, MCHC 33.6, RDW 13.2, Plt Count 317, MPV 8.1, Neut % (Auto) 73.2, Lymph % (Auto) 14.7, Carlisle % (Auto) 8.6, Eos % (Auto) 2.9, Baso % (Auto) 0.6, Neut # (Auto) 7.4, Lymph # (Auto) 1.5, Carlisle # (Auto) 0.9, Eos # (Auto) 0.3, Baso # (Auto) 0.1, ESR 28 H, PT 11.3, INR 1.05, APTT 29.8, Sodium 137, Potassium 3.7, Chloride 102, Carbon Dioxide 24, Anion Gap 14.7, BUN 8 L, Creatinine 0.60 L, Estimated Creat Clear 100, Estimated GFR 137, Est GFR ( Amer) 166, Glucose 129 H, Uric Acid 3.2 L, Calcium 9.5, Total Bilirubin 1.2, AST 42, ALT 27, Alkaline Phosphatase 89, Total Creatine Kinase 430 H, C-Reactive Protein 109.3 H, Total Protein 7.7, Albumin 4.5, Globulin 3.2, Albumin/Globulin Ratio 1.4 02/19/24 07:30 02/19/24 07:30 Orders (Tests/Meds): ED MEDICATIONS Generic Name Dose Route Start Last Admin Trade Name Freq PRN Reason Stop Dose Admin Oxycodone HCl 5 mg 02/19/24 09:37 Oxycodone 5mg Immediate Release Tablet PO 02/19/24 09:38 ONCE ONE Discontinued Medications Generic Name Dose Route Start Last Admin Trade Name Freq PRN Reason Stop Dose Admin Acetaminophen 1,000 mg 02/19/24 08:01 02/19/24 08:08 Acetaminophen 500mg Tab PO 02/19/24 08:02 1,000 mg ONCE ONE Administration Ketorolac Tromethamine 15 mg 02/19/24 08:01 02/19/24 08:08 Ketorolac 30mg/Ml Vial IV 02/19/24 08:02 15 mg ONCE ONE Administration ORDERS Category Date Time Status XR knee LT 3V Stat Exams 02/19/24 07:58 Completed XR tibia fibula LT 2V Stat Exams 02/19/24 07:58 Taken Activated Partial Thrombo Time Stat Lab 02/19/24 07:30 Completed C-Reactive Protein Stat Lab 02/19/24 07:30 Completed CK [Creatine Kinase] Stat Lab 02/19/24 07:30 Completed Complete Blood Count Auto Diff Stat Lab 02/19/24 07:30 Completed Comprehensive Metabolic Panel Stat Lab 02/19/24 07:30 Completed ESR [Erythrocyte Sedimentation Rate] Stat Lab 02/19/24 07:30 Completed Prothrombin Time INR Stat Lab 02/19/24 07:30 Completed Uric Acid Stat Lab 02/19/24 07:30 Completed CA venous doppler LE LT Stat Y 02/19/24 07:26 Completed Medical Decision Narrative: In summary, this patient is a 63-year-old male presenting to the Emergency Department for evaluation of atraumatic left lower extremity pain and swelling. Differential diagnoses considered include but are not limited to DVT, cellulitis, dependent edema, bursitis, septic arthritis, gouty arthritis. Ruling out the most morbid conditions drove assessment. It should be noted patient's history includes hypertension and tobacco use which are not at goal therapy. This complicates all aspects of care by increasing patient's risk for morbidity. I reviewed patient's past medical records and noted patient also has a history of alcohol use. On exam, the patient is resting comfortably in bed in no acute distress. Vitals are reassuring on cardiac telemetry. He has a swollen left leg extending from the knee down to the ankle. He is tenderness to palpation of the lateral aspect of the left lower leg with a palpable cord. His medial compartment is tight, but he is neurovascularly intact. He has significant L joint effusion with limited ROM. Workup included CBC, CMP, ESR, CRP, PT, PTT, uric acid, CK and DVT ultrasound of the left lower extremity. XR of the L knee and tib/fib also ordered. He was given IV Toradol and oral Tylenol for symptomatic improvement. I independently interpreted x-ray and DVT ultrasound prior to the radiologist read and noted joint effusion but no DVT or fracture. Please see their read for final interpretation. Labs were obtained that demonstrated elevated ESR and CRP as well as elevated CK. No other acute concerning abnormalities noted on labs. On reassessment, patient had some improvement after administration of medications above, but he still has significant pain. Given this, he was given oral oxycodone. Given his significant joint effusion, elevated inflammatory markers, and mildly elevated CK, I feel he would benefit from evaluation by orthopedics for potential joint aspiration and compartment monitoring. We do not have orthopedics on-call at this time, so I initiated discussions with [facility] transfer [facility]. I had an interactive discussion with Dr. Garcia [facility] who accepted the patient for transfer to [place]. I discussed this with patient and family, and they are agreeable to this. They advised that they do not want EMS transport, they would like to go POV. I advised that they proceed directly there and did not eat or drink anything. Patient left to go to [facility] as a transfer in stable condition. Critical Care Critical Care Time Critical Care Time: No
--- NOTE | 2024-02-19 07:28 | PC.NURSE ---
notified arsh in the echo lab of doppler
--- NOTE | 2024-02-19 07:58 | XR_ITS ---
FINAL REPORT CLINICAL HISTORY: atraumatic pain/swelling FINDINGS: LEFT KNEE 3 views were obtained. There is no acute fracture or dislocation. The joint spaces are intact. A small joint effusion is noted. IMPRESSION: Small joint effusion with no acute bony abnormality. Reviewed, Interpreted and Dictated by Mahesh Malloy MD Transcribed by Dianelys Obregon Authenticated and [facility]
--- NOTE | 2024-02-19 07:58 | XR_ITS ---
FINAL REPORT CLINICAL HISTORY: atraumatic pain/swelling FINDINGS: LEFT TIBIA FIBULA 2 views were obtained. There is no acute fracture or dislocation. The joint spaces are intact. A small joint effusion is seen in the knee. IMPRESSION: No acute bony abnormality. Reviewed, Interpreted and Dictated by Mahesh Malloy MD Transcribed by Dianelys Obregon Authenticated and [facility]
[2024-02-19 07:59] LABS: Basophils # 0.1 K/mm3 (0-0.2); Basophils % 0.6 % (0.1-2.0); Eosinophils # 0.3 K/mm3 (0.0-0.4); Eosinophils % 2.9 % (0.1-12.0); Hematocrit 41.9 % (42.0-52.0); Hemoglobin 14.1 g/dL (14.1-18.0); Lymphocytes # 1.5 K/mm3 (0.7-4.5); Lymphocytes % 14.7 % (10-50); Mean Corpuscular HGB Conc 33.6 g/dL (31.8-35.4); Mean Corpuscular Hemoglobin 31.5 pg (27.0-31.2); Mean Corpuscular Volume 93.8 fl (80-94); Mean Platelet Volume 8.1 fl (7.4-10.4); Monocytes # 0.9 K/mm3 (0.1-1.0); Monocytes % 8.6 % (1.7-9.3); Neutrophils # 7.4 K/mm3 (1.8-7.8); Neutrophils % 73.2 % (37.0-80.0); Platelet Count 317 K/mm3 (142-424); Red Blood Count 4.47 M/mm3 (4.60-6.20); Red Cell Distribution Width 13.2 % (11.5-17.5)
[2024-02-19 08:03] LABS: Chloride 102 mmol/L (98-107); Sodium 137 mmol/L (136-145)
[2024-02-19 08:04] LABS: Potassium 3.7 mmoL/L (3.5-5.1)
[2024-02-19 08:06] LABS: Activated Partial Thrombo Time 29.8 seconds (22.8-30.6); Alanine Aminotransferase 27 U/L (12-78); Albumin Level 4.5 g/dl (3.5-5.0); Albumin/Globulin Ratio 1.4 (1.1-1.8); Alkaline Phosphatase 89 U/L (38-126); Anion Gap 14.7 mEq/L (5-15); Aspartate Amino Transferase 42 U/L (17-59); Bilirubin,Total 1.2 mg/dl (0.2-1.3); Blood Urea Nitrogen 8 mg/dl (9-20); Calcium 9.5 mg/dl (8.4-10.2); Carbon Dioxide 24 mmol/L (22.0-30.0); Creatine Kinase 430 U/L (55-170); Creatinine Clearance Estimated 100 mL/min (50-200); Estimated Glomerular Filt Rate 137 ml/min (>60); GFR (African American) 166 ML/MIN (>60); Globulin 3.2 g/dL (1.3-3.2); Glucose 129 mg/dl (74-100); INR 1.05 (0.9-1.1); Prothrombin Time 11.3 seconds (10.1-12.5); Total Protein,Serum 7.7 g/dl (6.3-8.2)
[2024-02-19] MEDS: KETOROLAC 30MG/ML VIAL 15 MG IV (08:08)
[2024-02-19] MEDS: ACETAMINOPHEN 500MG TAB 1000 MG PO (08:08)
[2024-02-19 08:12] LABS: C-Reactive Protein 109.3 mg/L (0-4)
[2024-02-19 08:43] LABS: Uric Acid 3.2 mg/dl (3.5-8.5)
[2024-02-19 08:47] LABS: Erythrocyte Sedimentation Rate 28 mm/hr (0-20)
--- NOTE | 2024-02-19 08:54 | PC.NURSE ---
updated pt. no questions or concerns voiced. bed in lowest position. call light within reach.
--- NOTE | 2024-02-19 09:10 | PC.NURSE ---
calling [facility] transfer to [facility] for orth eval/poss joint tap
[2024-02-19] MEDS: OXYCODONE 5MG IMMEDIATE RELEASE TABLET 5 MG PO (09:43)
--- NOTE | 2024-02-19 10:13 | PC.NURSE ---
Report called to [facility] @ [place].
== END 2024-02-19 10:30 | disposition short-term general hospital (02) ==
PROVIDERS: Emergency Provider Emergency Medicine; PCP Physician Assistant
DX: M79.662 Pain in left lower leg (principal); M25.462 Effusion, left knee; R79.82 Elevated C-reactive protein (CRP); R74.8 Abnormal levels of other serum enzymes; I10 Essential (primary) hypertension; F17.210 Nicotine dependence, cigarettes, uncomplicated
CPT/HCPCS: 73562; 73590; 80053; 82550; 84550; 85025; 85610; 85651; 85730; 86140; 93971; 96374; 99284

== ENCOUNTER 2025-04-12 09:50 | Outpatient (CLI) | payer OTHER, SELFPAY ==
[2025-04-12 10:27] LABS: Hematocrit 45.6 % (42.0-52.0); Hemoglobin 15.8 g/dL (14.1-18.0); Immature Granulocytes % 0.1 %; Mean Corpuscular HGB Conc 34.6 g/dL (31.8-35.4); Mean Corpuscular Hemoglobin 31.8 pg (27.0-31.2); Mean Corpuscular Volume 91.8 fl (80-94); Nucleated Red Blood Cells % 0 %; Platelet Count 277 K/mm3 (142-424); Red Blood Count 4.97 M/mm3 (4.60-6.20); Red Cell Distribution Width-SD 42.6 fL; White Blood Count 7.1 K/mm3 (4.8-10.8)
[2025-04-12 10:45] LABS: Alanine Aminotransferase 20 U/L (12-78); Albumin Level 4.7 g/dl (3.5-5.0); Alkaline Phosphatase 78 U/L (38-126); Anion Gap 11.5 mEq/L (5-15); Aspartate Amino Transferase 28 U/L (17-59); Bilirubin,Direct 0.5 mg/dl (0.0-0.4); Bilirubin,Indirect 0.4 mg/dL (0.0-0.9); Bilirubin,Total 0.9 mg/dl (0.2-1.3); Bilirubin,Unconjugated 0.4 mg/dL (0.0-1.1); Blood Urea Nitrogen 8 mg/dl (9-20); Calcium 9.6 mg/dl (8.4-10.2); Carbon Dioxide 25 mmol/L (22.0-30.0); Chloride 106 mmol/L (98-107); Cholesterol 174 mg/dl (140-200); Creatinine,Serum 0.70 mg/dl (0.66-1.25); Estimated Glomerular Filt Rate 114 ml/min (>60); GFR (African American) 138 ML/MIN (>60); Glucose 119 mg/dl (74-100); HDL Cholesterol 51 mg/dl (40-60); Magnesium 2.1 mg/dl (1.6-2.3); Potassium 4.5 mmoL/L (3.5-5.1); Sodium 138 mmol/L (136-145); Total Protein,Serum 7.1 g/dl (6.3-8.2); Triglycerides 198 mg/dl (30-150)
[2025-04-12 11:03] LABS: Free T4 (Free Thyroxine) 1.22 ng/dl (0.78-2.19)
[2025-04-12 11:15] LABS: Thyroid Stimulating Hormone 1.88 uIU/mL (0.465-4.68)
== END 2025-04-12 23:59 | disposition home or self-care (01) ==
LOC: LAB 09:51
PROVIDERS: PCP Physician Assistant; Visit Provider Nurse Practitioner
DX: M79.605 Pain in left leg (principal); I10 Essential (primary) hypertension; R53.83 Other fatigue; R20.2 Paresthesia of skin; R20.0 Anesthesia of skin
CPT/HCPCS: 36415; 80048; 80061; 80076; 83735; 84439; 84443; 85025

== ENCOUNTER 2025-05-19 11:15 | Outpatient (CLI) | payer OTHER, SELFPAY ==
[2025-05-19 15:21] LABS: Hematocrit 43.1 % (42.0-52.0); Hemoglobin 14.6 g/dL (14.1-18.0); Immature Granulocytes % 0.2 %; Mean Corpuscular HGB Conc 33.9 g/dL (31.8-35.4); Mean Corpuscular Hemoglobin 31.3 pg (27.0-31.2); Mean Corpuscular Volume 92.3 fl (80-94); Nucleated Red Blood Cells % 0 %; Platelet Count 240 K/mm3 (142-424); Red Blood Count 4.67 M/mm3 (4.60-6.20); Red Cell Distribution Width-SD 42.2 fL; White Blood Count 5.4 K/mm3 (4.8-10.8)
[2025-05-19 16:00] LABS: Hemoglobin A1C 5.9 % (4.0-6.0)
[2025-05-19 16:02] LABS: Albumin Level 4.6 g/dl (3.5-5.0); Chloride 106 mmol/L (98-107); Sodium 137 mmol/L (136-145)
[2025-05-19 16:03] LABS: Potassium 4.4 mmoL/L (3.5-5.1)
[2025-05-19 16:05] LABS: Alanine Aminotransferase 22 U/L (12-78); Albumin/Globulin Ratio 2.0 (1.1-1.8); Alkaline Phosphatase 74 U/L (38-126); Anion Gap 11.4 mEq/L (5-15); Aspartate Amino Transferase 29 U/L (17-59); Bilirubin,Total 0.6 mg/dl (0.2-1.3); Blood Urea Nitrogen 11 mg/dl (9-20); Carbon Dioxide 24 mmol/L (22.0-30.0); Cholesterol 138 mg/dl (140-200); Creatinine,Serum 0.60 mg/dl (0.66-1.25); Estimated Glomerular Filt Rate 136 ml/min (>60); GFR (African American) 165 ML/MIN (>60); Globulin 2.3 g/dL (1.3-3.2); Total Protein,Serum 6.9 g/dl (6.3-8.2); Triglycerides 131 mg/dl (30-150)
[2025-05-19 16:06] LABS: Calcium 9.1 mg/dl (8.4-10.2); Glucose 107 mg/dl (74-100); HDL Cholesterol 58 mg/dl (40-60)
[2025-05-19 16:40] LABS: Thyroid Stimulating Hormone 2.12 uIU/mL (0.465-4.68)
[2025-05-19 16:58] LABS: Hepatitis C Ab Qual. W/ RFX NEGATIVE (Negative)
[2025-05-21 08:32] LABS: Hepatitis B Surface Antigen Negative (Negative)
== END 2025-05-19 23:59 | disposition home or self-care (01) ==
LOC: LAB.DROPOF 05-20 12:14
PROVIDERS: PCP Family Medicine; Visit Provider Family Medicine
DX: Z12.5 Encounter for screening for malignant neoplasm of prostate (principal); Z11.59 Encounter for screening for other viral diseases; I10 Essential (primary) hypertension; R73.09 Other abnormal glucose; R53.83 Other fatigue; R79.82 Elevated C-reactive protein (CRP); R07.89 Other chest pain
CPT/HCPCS: 80053; 80061; 83036; 84443; 85025; 86803; 87340; 87389; G0103

== ENCOUNTER 2025-07-19 11:06 | Outpatient (CLI) | payer OTHER, SELFPAY ==
--- NOTE | 2025-07-19 11:15 | CA_ITS ---
FINAL REPORT TECHNIQUE: Multiple transverse and longitudinal images were performed of right the femoral-popliteal deep venous system with augmentation and compression maneuvers. CLINICAL HISTORY: RLE edema, pain x 2 weeks, red, warm to touch, smoker FINDINGS: Right lower extremity duplex ultrasound demonstrates normal flow in the deep venous system. There is no abnormal echogenicity to suggest thrombus. There is normal compression and augmentation. IMPRESSION: No evidence of right DVT. Reviewed, Interpreted and Dictated by Mahesh Malloy MD Transcribed by Jane Wilburn Authenticated and . [facility]
== END 2025-07-19 23:59 | disposition home or self-care (01) ==
LOC: RT 11:07
PROVIDERS: PCP Family Medicine; Visit Provider Family Medicine
DX: M79.661 Pain in right lower leg (principal); M79.89 Other specified soft tissue disorders; R60.0 Localized edema; F17.200 Nicotine dependence, unspecified, uncomplicated
CPT/HCPCS: 93971

== ENCOUNTER 2025-07-20 15:00 | Outpatient (CLI) | payer OTHER, SELFPAY ==
[2025-07-20 15:52] LABS: Hematocrit 39.7 % (42.0-52.0); Hemoglobin 13.4 g/dL (14.1-18.0); Immature Granulocytes % 0.3 %; Mean Corpuscular HGB Conc 33.8 g/dL (31.8-35.4); Mean Corpuscular Hemoglobin 31.3 pg (27.0-31.2); Mean Corpuscular Volume 92.8 fl (80-94); Nucleated Red Blood Cells % 0 %; Platelet Count 332 K/mm3 (142-424); Red Blood Count 4.28 M/mm3 (4.60-6.20); Red Cell Distribution Width-SD 42.3 fL; White Blood Count 7.7 K/mm3 (4.8-10.8)
== END 2025-07-20 23:59 | disposition home or self-care (01) ==
LOC: LAB 15:01
PROVIDERS: PCP Family Medicine; Visit Provider Specialist
DX: M79.89 Other specified soft tissue disorders (principal); M79.669 Pain in unspecified lower leg; W57.XXXA Bitten or stung by nonvenomous insect and other nonvenomous arthropods, initial encounter
CPT/HCPCS: 36415; 85025; 87476

== ENCOUNTER 2025-07-25 10:44 | Outpatient (CLI) | payer OTHER, SELFPAY ==
--- NOTE | 2025-07-25 11:00 | CA_ITS ---
FINAL REPORT TECHNIQUE: Mccoy scale, color and spectral doppler images of the bilateral carotid arteries were obtained. CLINICAL HISTORY: TIA,HTN,SMOKER,HLD FINDINGS: Peak systolic velocity in the right internal carotid artery is 88 cm/sec. The internal carotid to common carotid artery ratio is 1.08. There is less than 50% carotid artery stenosis and no significant plaque formation. The right vertebral artery is normal in direction. Peak systolic velocity in the left internal carotid artery is 116 cm/sec. The internal carotid to common carotid artery ratio is 1.46. There is less than 50% carotid artery stenosis and no significant plaque formation. The left vertebral artery is normal in direction. IMPRESSION: Less than 50% bilateral carotid artery stenosis. Normal peak systolic velocities and normal internal to common carotid artery ratios bilaterally. Reviewed, Interpreted and Dictated by Deysi Szymanski MD Transcribed by Maida An Authenticated and [facility]
== END 2025-07-25 23:59 | disposition home or self-care (01) ==
LOC: RT 10:46
PROVIDERS: PCP Family Medicine; Visit Provider Specialist
DX: I65.23 Occlusion and stenosis of bilateral carotid arteries (principal); M79.605 Pain in left leg; R20.0 Anesthesia of skin; R20.2 Paresthesia of skin
CPT/HCPCS: 93880

== ENCOUNTER 2025-07-27 13:55 | Outpatient (CLI) | payer OTHER, SELFPAY ==
[2025-07-27 14:20] LABS: Blood Urea Nitrogen 13 mg/dl (9-20); Creatinine,Serum 0.70 mg/dl (0.66-1.25); Estimated Glomerular Filt Rate 114 ml/min (>60); GFR (African American) 138 ML/MIN (>60)
--- NOTE | 2025-07-27 14:45 | MR_ITS ---
FINAL REPORT TECHNIQUE: Multiplanar and multisequence imaging of the brain was obtained before and after contrast administration. CLINICAL HISTORY: r/o TIA, numbness, tingling left side COMPARISON: None FINDINGS: There is no mass effect. No midline shift. Bilateral periventricular and subcortical white matter changes are noted. There is no evidence of hydrocephalus. There are no areas of abnormal signal intensity in the brainstem or cerebellum. No areas of restricted diffusion to suggest acute ischemia. Cerebellar tonsils extend below the foramen magnum. No abnormal signal intensity in the visualized proximal cord. Findings concerning for Chiari 1. There are bilateral small mucosal cysts or polyps in the maxillary sinuses. There is partial opacification of the ethmoid air cells. Post contrast imaging: No abnormal enhancement. IMPRESSION: No acute intracranial abnormality and no pathologic contrast enhancement. Periventricular and subcortical white matter changes are nonspecific and favored to be changes of chronic ischemia. Tonsillar extension inferior to the foramen magnum most consistent with Chiari 1. Reviewed, Interpreted and Dictated by Deysi Szymanski MD Transcribed by Maida An Authenticated and [facility]
[2025-07-27] MEDS: GADOTERIDOL INJ 20ML SYRINGE 20 ML IV (14:59)
== END 2025-07-27 23:59 | disposition home or self-care (01) ==
LOC: RAD 13:55
PROVIDERS: PCP Family Medicine; Visit Provider Specialist
DX: G45.9 Transient cerebral ischemic attack, unspecified (principal); M79.605 Pain in left leg; R90.82 White matter disease, unspecified; R90.89 Other abnormal findings on diagnostic imaging of central nervous system
CPT/HCPCS: 36415; 70553; 82565; 84520; A9576

== ENCOUNTER 2025-07-29 07:27 | Outpatient (CLI) | payer OTHER, SELFPAY ==
--- NOTE | 2025-07-29 08:00 | US_ITS ---
FINAL REPORT CLINICAL HISTORY: claudication, current smoker, HTN, HLD, left rest pain, right calf redness. FINDINGS: ANKLE-BRACHIAL PRESSURE INDICES Pressure indices are as follows: RIGHT LOWER EXTREMITY: Ankle-brachial pressure index: 1.11 Comments: Normal LEFT LOWER EXTREMITY: Ankle-brachial pressure index: 1.04 Comments: Normal IMPRESSION: No evidence of significant obstructive peripheral vascular disease of the lower extremities Reviewed, Interpreted and Dictated by Mahesh Malloy MD Transcribed by Maida An Authenticated and [facility]
== END 2025-07-29 23:59 | disposition home or self-care (01) ==
LOC: RT 07:28
PROVIDERS: PCP Family Medicine; Visit Provider Family Medicine
DX: I73.9 Peripheral vascular disease, unspecified (principal); F17.200 Nicotine dependence, unspecified, uncomplicated; I10 Essential (primary) hypertension; E78.5 Hyperlipidemia, unspecified; M79.605 Pain in left leg; L53.9 Erythematous condition, unspecified
CPT/HCPCS: 93923

== ENCOUNTER 2025-08-22 13:35 | Outpatient (CLI) | payer OTHER, SELFPAY ==
--- NOTE | 2025-08-22 13:36 | XR_ITS ---
FINAL REPORT CLINICAL HISTORY: LEFT knee pain, SIMMONS CYST FINDINGS: LEFT KNEE 3 views of the left knee were obtained. There is no acute fracture or dislocation. Visualized joint spaces are normally aligned. Previously seen joint effusion is smaller but still present. Soft tissues are unremarkable. IMPRESSION: No acute bony abnormality. Reviewed, Interpreted and Dictated by Deysi Szymanski MD Transcribed by Jane Wilburn Authenticated and [facility]
== END 2025-08-22 23:59 | disposition home or self-care (01) ==
LOC: RAD 13:36
PROVIDERS: PCP Family Medicine; Visit Provider Physician Assistant Surgical
DX: M25.462 Effusion, left knee
CPT/HCPCS: 73562